=== PATIENT | male | born 1950 | race Caucasian/White ===

== ENCOUNTER 2017-07-09 03:33 | Day surgery (SDC) | payer OTHER ==
[~2017-07-09] VITALS: Ht 185.4 cm; Wt 79.8 kg
[2017-07-09] VITALS (7 sets, daily range): BP systolic 103–132; BP diastolic 60–83
[~2017-07-09 03:33] MED LIST: ASPI-719 PO; GLUC500T13 PO; META-1 PO; MULT1CAP41 PO; NAPR-1043 PO; PNEI IJ; SIMV-49 PO
[2017-07-09] MEDS ORDERED: NORMOSOL R SOLN(*) 1000 ML BAG 1,000 ML IV PRN (07:15)
[2017-07-09] MEDS ORDERED: LIDOCAINE/SOD BICARB 8.4% SYR ID ONE (07:15)
[2017-07-09] MEDS ORDERED: MIDAZOLAM 2 MG/2 ML VIAL IVP PRN (07:15)
[2017-07-09] MEDS ORDERED: PROPOFOL EMUL(*) 10MG/ML 20 ML 40 ML ONE (07:23)
[2017-07-09] MEDS ORDERED: LIDOCAINE MPF 1% 5 ML VIAL ONE (07:23)
== END 2017-07-09 10:00 | disposition home or self-care (01) ==
LOC: OR 03:33
PROVIDERS: ATTEND Internal Medicine
DX: Z12.11 Encounter for screening for malignant neoplasm of colon (principal)
CPT/HCPCS: 00812; 45378; J2001; J2704